=== PATIENT | male | born 1965 | race Caucasian/White ===

== ENCOUNTER 2021-12-31 10:38 | Emergency (ER) | payer OTHER, BC ==
[~2021-12-31] VITALS: Ht 170.2 cm; Wt 70.5 kg
[2021-12-31 14:04] VITALS: BP 158/95
== END 2021-12-31 14:22 | disposition home or self-care (01) ==
LOC: M ED 10:38
DX: K43.9 Ventral hernia without obstruction or gangrene (principal)